=== PATIENT | male | born 1985 | race Caucasian/White ===

== ENCOUNTER → 2018-03-30 | Day surgery (SDC) | payer OTHER ==
[2018-03-25 15:56] VITALS: BMI 33.0
[~2018-03-30] VITALS: Ht 157.5 cm; Wt 81.8 kg
[~2018-03-30] MED LIST: ADAL40KI SC; AMIT25TA9 PO; AMLO5TAB3 PO; AMOX500C3 PO; AZIT250T PO; BENZ1GEL24; CALC500C70 PO; CLIN1GEL5; DICL1GEL12 TD; HYDR200T5 PO; KETAMINE HCL INJ 50 MG/ML 10 ML VIAL ONE; LIDOCAINE HCL 2% 2 ML VIAL (20MG/ML) ONE; MESA4KIT3 RE; MIDAZOLAM HCL 1 MG/ML 2ML VIAL ONE; MULT-220; OMEP-334 PO; POLY335019 PO; PROPOFOL IV EMULSION 10 MG/ML 20 ML VIAL ONE; SUMA50TA15 PO
[2018-03-30 08:45] VITALS: Ht 157.5 cm; Wt 81.8 kg
--- NOTE | 2018-03-30 09:11 | Endo History and Physical ---
History & Physical Date of Service: Mar 30, 2018. Chief Complaint: ULCERS, COLON POLYPS Referring Physician: PRIMO WATSON History of Present Illness Patient presenting for follow-up with regard to also otitis, nausea and vomiting. We are planning to do an upper endoscopy today to evaluate his history of nausea and vomiting is been ongoing for several months. 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 Past Medical History Arthritis, Other Past Surgical History Hx Cardiac Surgery: No Hx Internal Defibrillator: No Hx Pacemaker: No Hx Abdominal Surgery: Yes (OPEN LIVER BX) Hx of Implantable Prosthesis: No Hx Post-Op Nausea and Vomiting: No Hx Cancer Surgery: No Hx Thoracic Surgery: No Hx Orthopedic: Yes (2 NECK SURGERIES (ABNORMAL ROM)) Hx Urinary Tract Surgery: No Family History Colon CA Social History Smoking Status: Never Smoker Hx Substance Use: No Hx Alcohol Use: Yes (MINIMAL) Allergies Coded Allergies: Codeine (Verified Allergy, Unknown, RASH, 03/30/18) Morphine (Verified Allergy, Unknown, RASH, 03/30/18) Naproxen (Verified Allergy, Unknown, RASH, 03/30/18) EDEMA-OTHER, RASH Rofecoxib (Verified Allergy, Unknown, ANAPHYLAXIS, 03/30/18) AIRWAY EDEMA, RASH Current Medications Reported Home Medications Medications Dose Route/Sig Max Daily Dose Days Date Category Plaquenil (Hydroxychloroquine Sulfate) 200 Mg Tab 400 Mg PO HS 03/25/18 Reported Os-Antony 500 Plus D (Calcium/Vitamin D) Tab 2 Tab PO BID 03/25/18 Reported Imitrex (Sumatriptan Succinate) 50 Mg Tab 50 Mg PO PRN 03/25/18 Reported Amoxil (Amoxicillin) 500 Mg Cap 4 Cap PO DIRECTED 03/25/18 Reported Mesalamine (Mesalamine W/ Cleanser) 4 Gm Kit 1 Dose RE HS 03/25/18 Reported Zithromax (Azithromycin) 250 Mg Tab 250 Mg PO 3XWK 03/25/18 Reported Humira Pen (Adalimumab) 40 Mg/0.8 Ml Kit 40 Mg SC DIRECTED 03/25/18 Reported Voltaren 1% Top Gel (Diclofenac Sodium (Topical)) 1 % Gel 1 Dose TD TID 03/25/[address] (Omeprazole) 40 Mg Cap 1 Cap PO DAILY 03/25/18 Reported Elavil (Amitriptyline Hcl) 25 Mg Tab 50 Mg PO HS 03/25/18 Reported Miralax (Polyethylene Glycol 3350) 1 Pow Pow 17 Gm PO DAILY 03/25/18 Reported Multi For Him (Multiple Vitamins W/ Minerals) 1 Tab Tab DAILY 12/08/14 Reported Benzoyl Peroxide 5 % Gel 12/08/14 Reported Clindamycin Phosphate (Clindamycin Phosphate (Topical) 1 % Gel 12/08/14 Reported Vital Signs Weight (Kilograms): 81.82 Height (Feet): 5 Height (Inches): 2 Date Time Temp Pulse Resp B/P (MAP) Pulse Ox O2 Delivery O2 Flow Rate FiO2 03/30/18 08:48 36.0 81 18 140/102 (115) 98 Room Air Physical Exam General Appearance: no apparent distress Respiratory/Chest: Auscultation: breath sounds normal Cardiovascular: Heart Auscultation: II/ ADRIANO Abdomen: Inspection & Palpation: soft Patient with very poor mobility of the head jaw and neck. Assessment and Plan We have discussed the risks and benefits of upper endoscopy and colonoscopy to include bleeding, infection, perforation, respiratory problems and emergency airway problems.
--- NOTE | 2018-03-30 09:54 | Discharge Instructions ---
Endoscopy Patient Instructions Date / Procedure(s) Performed Mar 30, 2018. Colonoscopy, EGD Allergy Information Coded Allergies: Codeine (Verified Allergy, Unknown, RASH, 03/30/18) Morphine (Verified Allergy, Unknown, RASH, 03/30/18) Naproxen (Verified Allergy, Unknown, RASH, 03/30/18) EDEMA-OTHER, RASH Rofecoxib (Verified Allergy, Unknown, ANAPHYLAXIS, 03/30/18) AIRWAY EDEMA, RASH Discharge Date / Findings Mar 30, 2018. Mild gastritis Normal esophagus Normal-appearing small intestine Internal hemorrhoids, colonoscopy otherwise normal Medication Instructions Reported Home Medications Medications Dose Route/Sig Max Daily Dose Days Date Category Plaquenil (Hydroxychloroquine Sulfate) 200 Mg Tab 400 Mg PO HS 03/25/18 Reported Os-Natony 500 Plus D (Calcium/Vitamin D) Tab 2 Tab PO BID 03/25/18 Reported Imitrex (Sumatriptan Succinate) 50 Mg Tab 50 Mg PO PRN 03/25/18 Reported Amoxil (Amoxicillin) 500 Mg Cap 4 Cap PO DIRECTED 03/25/18 Reported Mesalamine (Mesalamine W/ Cleanser) 4 Gm Kit 1 Dose RE HS 03/25/18 Reported Zithromax (Azithromycin) 250 Mg Tab 250 Mg PO 3XWK 03/25/18 Reported Humira Pen (Adalimumab) 40 Mg/0.8 Ml Kit 40 Mg SC DIRECTED 03/25/18 Reported Voltaren 1% Top Gel (Diclofenac Sodium (Topical)) 1 % Gel 1 Dose TD TID 03/25/[address] (Omeprazole) 40 Mg Cap 1 Cap PO DAILY 03/25/18 Reported Elavil (Amitriptyline Hcl) 25 Mg Tab 50 Mg PO HS 03/25/18 Reported Miralax (Polyethylene Glycol 3350) 1 Pow Pow 17 Gm PO DAILY 03/25/18 Reported Multi For Him (Multiple Vitamins W/ Minerals) 1 Tab Tab DAILY 12/08/14 Reported Benzoyl Peroxide 5 % Gel 12/08/14 Reported Clindamycin Phosphate (Clindamycin Phosphate (Topical) 1 % Gel 12/08/14 Reported Provider Instructions Activity Restrictions - No exercising or heavy lifting for 24 hours. - Do not drink alcohol the day of the procedure. - Do not drive a car or operate machinery until the day after the procedure. - Do not make any important decisions or sign important papers in 24 hours after the procedure. Following Day: - Return to full activity which may include returning to work/school. Diet Start your diet with liquids and light foods (jello, soup, juice, toast). Then eat your usual diet if not nauseated. Treatment For Common After Affects For mild abdominal pain, bloating, or excessive gas: - Rest - Eat lightly - Lie on right side Follow-Up Information Follow-up with gastroenterology in 6 months or sooner if needed Await pathology results Anesthesia Information What You Should Know You have had a procedure that required some medicine to reduce anxiety and discomfort. This treatment is called moderate sedation. After receiving the treatment, you may be sleepy, but you will be able to breathe on your own. The effects of the treatment may last for several hours. Follow these instructions along with Activity/Diet recommendations noted above: * Do NOT do anything where dizziness or clumsiness would be dangerous. * Rest quietly at home today, then you can be up and about tomorrow. * Have a responsible person stay with you the rest of today. * You may have had an I.V. today. If so, you may take the dressing off later today. Recommendations Call your doctor if: * Trouble breathing * Continuous vomiting for more than 24 hours * Temperature above 101 degrees * Severe abdominal pain or bloating * Pain not relieved by pain medicine ordered * There is increased drainage or redness from any incision * A large amount of rectal bleeding greater than 2-3 tablespoons. (If you had a polyp/s removed or have hemorrhoids, a small amount of blood - from the rectum is to be expected.) * You have any unanswered questions or concerns. IN THE EVENT OF A SERIOUS EMERGENCY, GO TO THE NEAREST EMERGENCY ROOM Your discharge instructions were prepared by provider Haydee Hermosillo. Patient Instructions Signature Page Loyda Davis Patient (or Guardian) Signature/Date: I have read and understand the instructions given to me by my caregivers. Caregiver/RN/Doctor Signature/Date: The above-named patient and/or guardian has received patient instructions on this date. + Original Patient Signature Page (only) stays with chart. Please make copy for patient.
--- NOTE | 2018-03-30 10:03 | GI REPORT ---
Patient Name: Loyda Davis Procedure Date: 03/30/2018 8:59 AM Date of : 1985 Admit Type: Outpatient Age: 32 Gender: Male Attending MD: Haydee Hermosillo DO Procedure: Upper GI endoscopy Providers: Haydee Hermosillo DO Referring MD: Melonie Diallo Indications: Nausea with vomiting Medicines: Monitored Anesthesia Care Complications: No immediate complications. Estimated blood loss: Minimal. Estimated Blood Loss: Estimated blood loss was minimal. Procedure: Pre-Anesthesia Assessment: - Prior to the procedure, a History and Physical was performed, and patient medications, allergies and sensitivities were reviewed. The patient's tolerance of previous anesthesia was reviewed. - The risks and benefits of the procedure and the sedation options and risks were discussed with the patient. All questions were answered and informed consent was obtained. - Patient identification and proposed procedure were verified prior to the procedure by the physician, the nurse and the solid waste division supervisor. The procedure was verified in the procedure room. - Pre-procedure physical examination revealed no contraindications to sedation. - ASA Grade Assessment: II - A patient with mild systemic disease. - After reviewing the risks and benefits, the patient was deemed in satisfactory condition to undergo the procedure. - The anesthesia plan was to use monitored anesthesia care (MAC). - Immediately prior to administration of medications, the patient was re-assessed for adequacy to receive sedatives. - The heart rate, respiratory rate, oxygen saturations, blood pressure, adequacy of pulmonary ventilation, and response to care were monitored throughout the procedure. - The physical status of the patient was re-assessed after the procedure. After obtaining informed consent, the endoscope was passed under direct vision. Throughout the procedure, the patient's blood pressure, pulse, and oxygen saturations were monitored continuously. The Endoscope was introduced through the mouth, and advanced to the third part of duodenum. The upper GI endoscopy was accomplished without difficulty. The patient tolerated the procedure well. Findings: The examined esophagus was normal. The Z-line was regular and was found 35 cm from the incisors. Diffuse mild inflammation characterized by erythema and granularity was found in the entire examined stomach. Biopsies were taken with a cold forceps for histology. Estimated blood loss was minimal. The examined duodenum was normal. Biopsies were taken with a cold forceps for histology. Estimated blood loss was minimal. Impression: - Normal esophagus. - Z-line regular, 35 cm from the incisors. - Mild antral gastritis. Biopsied. - Normal examined duodenum. Biopsied. Recommendation: - Perform a colonoscopy today. - Await pathology results. Haydee Hermosillo D.O. Haydee Hermosillo, 03/30/2018 10:02:54 AM This report has been signed electronically. Note Initiated On: 03/30/2018 8:59 AM Number of Addenda: 0 I attest to the content of the Intraoperative Record and orders documented therein, exceptions below {[id number]}
--- NOTE | 2018-03-30 10:07 | Anesthesiology Progress Note ---
Anesthesia Post Op Note Date & Time Mar 30, 2018 at 10:07 Vital Signs Pain Intensity: 0 Vital Signs Past 12 Hours Date Time Temp Pulse Resp B/P (MAP) Pulse Ox O2 Delivery O2 Flow Rate FiO2 03/30/18 09:57 83 16 146/108 (121) 99 Room Air 03/30/18 08:48 36.0 81 18 140/102 (115) 98 Room Air Notes Mental Status: alert / awake / arousable, participated in evaluation Pt Amnestic to Procedure: Yes Nausea / Vomiting: adequately controlled Pain: adequately controlled Airway Patency, RR, SpO2: stable & adequate BP & HR: stable & adequate Hydration State: stable & adequate Anesthetic Complications: no major complications apparent
--- NOTE | 2018-03-30 10:09 | GI REPORT ---
Patient Name: Loyda Davis Procedure Date: 03/30/2018 8:59 AM Date of : 1985 Admit Type: Outpatient Age: 32 Gender: Male Attending MD: Haydee Hermosillo DO Procedure: Colonoscopy Providers: Haydee Hermosillo DO Referring MD: Melonie Diallo Indications: High risk colon cancer surveillance: Ulcerative proctitis Medicines: Monitored Anesthesia Care Complications: No immediate complications. Estimated blood loss: Minimal. Estimated Blood Loss: Estimated blood loss was minimal. Procedure: Pre-Anesthesia Assessment: - Prior to the procedure, a History and Physical was performed, and patient medications, allergies and sensitivities were reviewed. The patient's tolerance of previous anesthesia was reviewed. - The risks and benefits of the procedure and the sedation options and risks were discussed with the patient. All questions were answered and informed consent was obtained. - Patient identification and proposed procedure were verified prior to the procedure by the physician, the nurse and the contact center director. The procedure was verified in the procedure room. - Pre-procedure physical examination revealed no contraindications to sedation. - ASA Grade Assessment: III - A patient with severe systemic disease. - After reviewing the risks and benefits, the patient was deemed in satisfactory condition to undergo the procedure. - The anesthesia plan was to use monitored anesthesia care (MAC). - Immediately prior to administration of medications, the patient was re-assessed for adequacy to receive sedatives. - The heart rate, respiratory rate, oxygen saturations, blood pressure, adequacy of pulmonary ventilation, and response to care were monitored throughout the procedure. - The physical status of the patient was re-assessed after the procedure. After I obtained informed consent, the scope was passed under direct vision. Throughout the procedure, the patient's blood pressure, pulse, and oxygen saturations were monitored continuously. The scope was introduced through the anus and advanced to the terminal ileum. The colonoscopy was performed without difficulty. The patient tolerated the procedure well. The quality of the bowel preparation was good. Findings: The perianal and digital rectal examinations were normal. Pertinent negatives include normal sphincter tone. The terminal ileum appeared normal. Internal hemorrhoids were found during retroflexion. The hemorrhoids were mild. A few small-mouthed diverticula were found in the sigmoid colon and descending colon. Normal mucosa was found in the entire colon. Biopsies were taken with a cold forceps from the entire colon for ulcerative colitis surveillance. These biopsy specimens from the right colon, left colon, transverse colon and rectum were sent to Pathology. Estimated blood loss was minimal. The exam was otherwise without abnormality. Impression: - The examined portion of the ileum was normal. - Internal hemorrhoids. - Normal mucosa in the entire examined colon. Biopsied. - Mild left sided diverticulosis. - The examination was otherwise normal. Recommendation: - Discharge patient to home (ambulatory). - Advance diet as tolerated today. - Await pathology results. - Repeat colonoscopy in 5 years for surveillance. - Return to GI office in 6 months. Haydee Hermosillo D.O. Haydee Hermosillo, 03/30/2018 10:08:23 AM This report has been signed electronically. Note Initiated On: 03/30/2018 8:59 AM Number of Addenda: 0 I attest to the content of the Intraoperative Record and orders documented therein, exceptions below {[id number]}
[2018-03-30 10:27] VITALS: BP 136/96; PULSE 73; O2SAT 100
== END | disposition home or self-care (01) ==
LOC: C.GI 07:59
PROVIDERS: ATTEND Internal Medicine Gastroenterology
DX: K51.90 Ulcerative colitis, unspecified, without complications (principal); R11.2 Nausea with vomiting, unspecified; K64.8 Other hemorrhoids; K57.90 Diverticulosis of intestine, part unspecified, without perforation or abscess without bleeding; I10 Essential (primary) hypertension; Z88.5 Allergy status to narcotic agent; Z80.0 Family history of malignant neoplasm of digestive organs; Z79.899 Other long term (current) drug therapy